=== PATIENT | female | born 1995 | race African-American/Black ===

== ENCOUNTER 2017-10-12 08:38 | Emergency (ER) | payer SELFPAY ==
[~2017-10-12] VITALS: Ht 160 cm; Wt 44.3 kg
[2017-10-12] MEDS ORDERED: ONDANSETRON HCL 4MG/2ML VIAL IV ONE (12:15)
[2017-10-12] MEDS ORDERED: SODIUM CHLORIDE 0.9% 1,000 ML IV ONE ×2 (12:15→13:45)
[2017-10-12 13:07] LABS: CLARITY URINE CLOUDY (CLEAR); COLOR URINE YELLOW (YELLOW); KETONES URINE 4+ (NEGATIVE); LEUKOCYTE ESTERASE URINE 3+ (NEGATIVE); NITRITE URINE POSITIVE (NEGATIVE); OCCULT BLOOD URINE TRACE (NEGATIVE); PH URINE 6.5 (4.5-8.0); PROTEIN URINE 1+ (NEGATIVE); SPECIFIC GRAVITY URINE 1.022 (1.005-1.030)
[2017-10-12 13:33] LABS: HEMATOCRIT. 35.9 % (36.0-48.0); HEMOGLOBIN. 11.5 g/dL (12.0-16.0); MEAN CORPUSCULAR VOLUME 71.5 fL (81.0-99.0); PLATELET 260 x1000/uL (130-400); RED BLOOD CELL COUNT 5.02 mill/uL (4.2-5.4)
[2017-10-12 13:38] LABS: INR 1.1; PROTHROMBIN TIME 11.3 sec (9.1-11.1)
[2017-10-12] MEDS ORDERED: ACETAMINOPHEN 325MG TABLET PO ONE (13:45)
[2017-10-12] MEDS ORDERED: CEFTRIAXONE 1 G PREMIX 50 ML IV ONE (13:45)
[2017-10-12] MEDS ORDERED: KETOROLAC 15MG/ML VIAL IV ONE (13:45)
[2017-10-12 13:49] LABS: CHLORIDE 102 mEq/L (98-107)
[2017-10-12 13:57] LABS: ATYPICAL LYMPHOCYTES 1
[2017-10-12 13:58] LABS: PLATELET ESTIMATE NORMAL
[2017-10-12 17:37] VITALS: BP 97/46
== END 2017-10-12 17:50 | disposition home or self-care (01) ==
LOC: ER 08:48
DX: N39.0 Urinary tract infection, site not specified (principal); R65.10 Systemic inflammatory response syndrome (SIRS) of non-infectious origin without acute organ dysfunction; D72.829 Elevated white blood cell count, unspecified; D50.9 Iron deficiency anemia, unspecified; J45.909 Unspecified asthma, uncomplicated; R50.9 Fever, unspecified; M79.1 Myalgia; R30.0 Dysuria
CPT/HCPCS: 36415; 80053; 81003; 81025; 83605; 83690; 85025; 85610; 87040; 96361; 96365; 96375; 99285; J0696; J1885; J2405; J7030